=== PATIENT | male | born 1970 | race Two or more races ===

== ENCOUNTER 2016-12-26 23:02 | Emergency (ER) | payer SELFPAY | END 2016-12-27 00:10 | disposition left against medical advice (07) | LOC: EDBD → ER 23:08 | DX: Z53.21 Procedure and treatment not carried out due to patient leaving prior to being seen by health care provider (principal) ==

== ENCOUNTER 2016-12-27 05:22 | Emergency (ER) | payer SELFPAY ==
[~2016-12-27] VITALS: Ht 182.9 cm; Wt 79.4 kg
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
--- NOTE | 2016-12-27 06:31 | NUR ---
DR. HUGO AT BEDSIDE FOR EVAL.
[2016-12-27] MEDS ORDERED: TDAP [DIPH/PERTUSSIS/TET] 0.5 ML VIAL IM ONE (07:07)
[2016-12-27] MEDS ORDERED: ACETAMINOPHEN ES 500 MG TABLET ONE (07:07)
[2016-12-27] MEDS: TDAP [DIPH/PERTUSSIS/TET] 0.5 ML VIAL IM ONE (07:14)
[2016-12-27] MEDS: ACETAMINOPHEN 325 MG TABLET PO ONE (07:14)
--- NOTE | 2016-12-27 07:34 | NUR ---
REPORT GIVEN TO OSEAS CABRAL FOR PARAMJIT
[2016-12-27 08:06] VITALS: BP 134/43
== END 2016-12-27 08:15 | disposition home or self-care (01) ==
LOC: ER 05:26
DX: S06.0X0A Concussion without loss of consciousness, initial encounter (principal); S23.3XXA Sprain of ligaments of thoracic spine, initial encounter; S00.81XA Abrasion of other part of head, initial encounter; W21.4XXA Striking against diving board, initial encounter; Y93.18 Activity, surfing, windsurfing and boogie boarding; Y92.832 Beach as the place of occurrence of the external cause; Y99.8 Other external cause status
CPT/HCPCS: 72070-TC; 90715; A4606; Z7610